=== PATIENT | male | born 1990 | race American Indian/Alaskan Native ===

== ENCOUNTER 2019-05-10 09:20 | Emergency (ER) | payer SELFPAY ==
[2019-05-10 10:01] VITALS: BP 147/84
--- NOTE | 2019-05-10 10:02 | Emergency Department Report ---
Chief Complaint: Sore Throat Stated Complaint: POSS STREP Time Seen by Provider: 05/10/19 09:57 - HPI History of Present Illness: 28 y/o male comes in for a sorethroat for a few days. No fever. - Exam Physical Exam: Axo times 3 NAD HEENT: no droolin able to swallow no SOB MSE screening note: Focused history and physical exam performed. Due to findings the following was ordered: 28 y/o male comes in for a sorethroat for a few days. No fever. Recommend follow up at urgent care or PCP. ED Disposition for MSE Condition: Stable
== END 2019-05-10 11:00 | disposition left against medical advice (07) ==
LOC: ED 09:20
DX: J02.9 Acute pharyngitis, unspecified (principal); Z53.21 Procedure and treatment not carried out due to patient leaving prior to being seen by health care provider

== ENCOUNTER 2021-10-24 10:45 | Emergency (ER) | payer OTHER ==
[2021-10-24] MEDS ORDERED: ZIPRASIDONE MESYLATE 20 MG VIAL IM ONE (11:50)
[2021-10-24] MEDS ORDERED: diphenhydrAMINE 50 MG/ML VIAL IM ONE (11:50)
[2021-10-24] MEDS ORDERED: ZIPRASIDONE MESYLATE 20 MG VIAL IM PRN (11:51)
[2021-10-24] MEDS ORDERED: diphenhydrAMINE 50 MG/ML VIAL IM PRN (11:51)
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
[2021-10-24 12:30] LABS: Basophils % (Auto) 0.2 % (0.0-1.8); Eosinophils % (Auto) 0.5 % (0.0-4.3); Hematocrit 47.8 % (35.5-45.6); Lymphocytes # (Auto) 1.1 K/mm3 (1.2-5.4); Lymphocytes % (Auto) 10.5 % (13.4-35.0); Mean Corpuscular HGB Conc 34 % (32-34); Mean Corpuscular Volume 93 fl (84-94); Monocytes # (Auto) 0.9 K/mm3 (0.0-0.8); Monocytes % (Auto) 8.6 % (0.0-7.3); Platelet Count 224 K/mm3 (140-440); Red Blood Count 5.16 M/mm3 (3.65-5.03); Red Cell Distribution Width 13.9 % (13.2-15.2)
[2021-10-24 12:55] LABS: BUN/Creatinine Ratio 11; Blood Urea Nitrogen 13 mg/dL (9-20); Calcium 10.1 mg/dL (8.4-10.2); Hemolysis Index 3
[2021-10-24 16:34] LABS: Mucus,Urine 3+ /HPF
[2021-10-24 16:41] LABS: Amphetamine Screen,Urine Negative; Benzodiazepines Screen,Urine Negative; Cocaine Screen,Urine Negative; Methadone Screen,Urine Negative; Opiate Screen,Urine Negative
[2021-10-24 16:49] LABS: Color,Urine Yellow (Yellow)
[2021-10-24 16:55] LABS: Cannabinoid Screen,Urine Positive
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
[2021-10-25] MEDS: ESCITALOPRAM 10 MG TAB PO SCH (10:48)
[2021-10-25] MEDS: hydrOXYzine PAMOATE 25 MG CAP PO SCH ×2 (10:48→21:37)
--- NOTE | 2021-10-25 12:04 | Event Note ---
Date: 10/25/21 S: No events reported overnight O: Vital Signs - 8 hr 10/25/21 10/25/21 11:10 11:11 Temperature 99.1 F Pulse Rate 76 Respiratory 18 Rate Blood Pressure 137/76 [Left] O2 Sat by Pulse 100 100 Oximetry A: Major depressive disorder, generalized anxiety disorder P: 1013/awaiting inpatient psych
[2021-10-26 08:48] VITALS: BP 147/82
--- NOTE | 2021-10-26 08:54 | Progress Note ---
Subjective - Reason for Consult Consult date: 10/26/21 Reason for consult: SI - Chief Complaint Chief complaint: The patient was seen today. He is calm, cooperative and polite. He apologizes to me about being upset yesterday. The patient and I had a long talk about his actions and consequences behind what he did. He says "I know it was stupid. It really was but I was never going to hurt myself or anybody. Ma'am, I'm actually a good andi." He says "I really do feel a lot better. I had a lot of time to think. What I did was really stupid to try and do that because somebody is leaving me." The patient says "being in here has scared me and taught me a l esson." He says he works today. The patient says he works at [employer] on the [employer]. He says "I have a pretty good job. I don't want to lose it." He says "that would really make things worse for me." He denies SI/HI. He says "none what so ever. I'm just ready to move past this." He denies hallucinations of any kind. We also discussed the benefit of therapy and him complying with his medical regimen. The patient agrees with plan. REVIEW OF SYSTEMS Constitutional: Negative for weight loss ENT: Negative for stridor Respiratory: Negative for cough or hemoptysis All other systems reviewed and are negative MENTAL STATUS EXAMINATION General Appearance and Behavior: Age appropriate, good hygiene, cooperative, calm, polite Cooperation: cooperative Psychomotor Behavior: Psychomotor normal, Mood: much better Affect and affective range: congruent with stated mood Thought Process: goal directed Thought Content: None Speech: normal rate and volume Suicidal Ideation: Denies Homicidal Ideation: Denies Hallucinations: Denies Delusions: None elicited Impulse Control: Normal Insight and Judgment: Limited Memory: Limited Attention: Attentive Orientation: Aox3 Assessment and Plan (1) Major Depressive Disorder (2) Generalized Anxiety Disorder Treatment Plan d/c 1013 Lexapro 5mg po daily Vistaril 25mg po BID Risks, benefits and alternatives of medications discussed with the patient, questions answered and consent obtained from patient. PSYCHOTHERAPY: Supportive psychotherapy provided MEDICAL: Per primary team DELIRIUM PRECAUTIONS: Please re-orient patient frequently, keep lights on during the day, and minimize benzodiazepines and opiates as these medications could worsen patient's confusion. 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 The patient understands that if SI/HI or any fear of endangerment are to arise he is to seek immediate assistance. The nurse practitioner physician assistant to give the patient all necessary outpatient resources The nurse practitioner physician assistant to further discuss and document safety plan The patient to follow up with outpatient psych in 7 to 14 days upon discharge FOLLOW-UP: Will sign off Thank you for the consult. Please contact with any questions and/or concerns Case discussed with Dr. Haney who agrees with current disposition Mental Status Exam - Vital signs Last Vital Signs Temp 98.4 F 10/26/21 08:46 Pulse 77 10/26/21 08:46 Resp 18 10/26/21 08:46 BP 147/82 10/26/21 08:46 Pulse Ox 98 10/26/21 08:47
[2021-10-26] MEDS: ESCITALOPRAM 10 MG TAB PO SCH (10:07)
[2021-10-26] MEDS: hydrOXYzine PAMOATE 25 MG CAP PO SCH (10:07)
--- NOTE | 2021-10-26 12:48 | Event Note ---
Date: 10/26/21 ER documentation nursing documentation and psychiatric documentation reviewed and appreciated. Patient was deemed medically cleared on his initial ER evaluation. The psychiatric team have recommended discontinuation of 1013. Nursing team reports no acute issues or concerns this morning. Patient ate food, went to the bathroom, and is calm and cooperative. May be discharged with outpatient follow-up as recommended by our psychiatry colleagues. Vital Signs 10/24/21 10/24/21 10/24/21 10:47 15:04 20:58 Temperature 99.6 F 98.6 F Pulse Rate 89 60 Respiratory 18 18 Rate Blood Pressure 149/78 146/83 [Left] O2 Sat by Pulse 98 97 99 Oximetry 10/25/21 10/25/21 10/26/21 11:10 11:11 01:57 Temperature 99.1 F 98.6 F Pulse Rate 76 62 Respiratory 18 16 Rate Blood Pressure 137/76 133/69 [Left] O2 Sat by Pulse 100 100 100 Oximetry 10/26/21 10/26/21 08:46 08:47 Temperature 98.4 F Pulse Rate 77 Respiratory 18 Rate Blood Pressure 147/82 [Left] O2 Sat by Pulse 98 98 Oximetry Lab Results 10/24/21 10/24/21 10/24/21 Range/Units 10:15 10:57 12:00 WBC 10.5 (4.5-11.0) K/mm3 RBC 5.16 H (3.65-5.03) M/mm3 Hgb 16.0 H (11.8-15.2) gm/dl Hct 47.8 H (35.5-45.6) % MCV 93 (84-94) fl MCH 31 (28-32) pg MCHC 34 (32-34) % RDW 13.9 (13.2-15.2) % Plt Count 224 (140-440) K/mm3 Lymph % (Auto) 10.5 L (13.4-35.0) % [place] % (Auto) 8.6 H (0.0-7.3) % Eos % (Auto) 0.5 (0.0-4.3) % Baso % (Auto) 0.2 (0.0-1.8) % Lymph # (Auto) 1.1 L (1.2-5.4) K/mm3 [place] # (Auto) 0.9 H (0.0-0.8) K/mm3 Eos # (Auto) 0.0 (0.0-0.4) K/mm3 Baso # (Auto) 0.0 (0.0-0.1) K/mm3 Seg Neutrophils % 80.2 H (40.0-70.0) % Seg Neutrophils # 8.5 H (1.8-7.7) K/mm3 Sodium (137-145) mmol/L Potassium (3.6-5.0) mmol/L Chloride (98-107) mmol/L Carbon Dioxide (22-30) mmol/L Anion Gap mmol/L BUN (9-20) mg/dL Creatinine (0.8-1.3) mg/dL Estimated GFR ml/min BUN/Creatinine Ratio % Glucose (75-100) mg/dL POC Glucose 91 (70-105) mg/dL Calcium (8.4-10.2) mg/dL Urine Color (Yellow) Urine Turbidity (Clear) Specific [place] (Man) (1.003-1.030) Ur Protein (Man) (Negative) mg/dL Ur Ketones (Man) (Negative) Ur Nitrite (Man) (Negative) Ur Reducing Substances Urine Bilirubin (Man) (Negative) Urine Ictotest Leukocyte Esterase (Man) (Negative) Urine WBC (Auto) (0.0-6.0) /HPF Urine RBC (Auto) (0.0-6.0) /HPF U Epithel Cells (Auto) (0-13.0) /HPF Urine RBC (Manual) (Negative) Urine Mucus /HPF Salicylates (2.8-20.0) mg/dL Urine Opiates Screen Urine Methadone Screen Acetaminophen (10.0-30.0) ug/mL Ur Barbiturates Screen Ur Phencyclidine Scrn Ur Amphetamines Screen U Benzodiazepines Scrn Urine Cocaine Screen U Marijuana (THC) Screen Drugs of Abuse Note Plasma/Serum Alcohol (0-0.07) % SARS-CoV-2 (PCR) Negative (Negative) 10/24/21 10/24/21 10/24/21 Range/Units 12:00 12:00 12:00 WBC (4.5-11.0) K/mm3 RBC (3.65-5.03) M/mm3 Hgb (11.8-15.2) gm/dl Hct (35.5-45.6) % MCV (84-94) fl MCH (28-32) pg MCHC (32-34) % RDW (13.2-15.2) % Plt Count (140-440) K/mm3 Lymph % (Auto) (13.4-35.0) % [place] % (Auto) (0.0-7.3) % Eos % (Auto) (0.0-4.3) % Baso % (Auto) (0.0-1.8) % Lymph # (Auto) (1.2-5.4) K/mm3 [place] # (Auto) (0.0-0.8) K/mm3 Eos # (Auto) (0.0-0.4) K/mm3 Baso # (Auto) (0.0-0.1) K/mm3 Seg Neutrophils % (40.0-70.0) % Seg Neutrophils # (1.8-7.7) K/mm3 Sodium 143 (137-145) mmol/L Potassium 4.2 (3.6-5.0) mmol/L Chloride 103.5 (98-107) mmol/L Carbon Dioxide 26 (22-30) mmol/L Anion Gap 18 mmol/L BUN 13 (9-20) mg/dL Creatinine 1.2 (0.8-1.3) mg/dL Estimated GFR > 60 ml/min BUN/Creatinine Ratio 11 % Glucose 104 H (75-100) mg/dL POC Glucose (70-105) mg/dL Calcium 10.1 (8.4-10.2) mg/dL Urine Color (Yellow) Urine Turbidity (Clear) Specific [place] (Man) (1.003-1.030) Ur Protein (Man) (Negative) mg/dL Ur Ketones (Man) (Negative) Ur Nitrite (Man) (Negative) Ur Reducing Substances Urine Bilirubin (Man) (Negative) Urine Ictotest Leukocyte Esterase (Man) (Negative) Urine WBC (Auto) (0.0-6.0) /HPF Urine RBC (Auto) (0.0-6.0) /HPF U Epithel Cells (Auto) (0-13.0) /HPF Urine RBC (Manual) (Negative) Urine Mucus /HPF Salicylates < 0.3 L (2.8-20.0) mg/dL Urine Opiates Screen Urine Methadone Screen Acetaminophen 5.0 L (10.0-30.0) ug/mL Ur Barbiturates Screen Ur Phencyclidine Scrn Ur Amphetamines Screen U Benzodiazepines Scrn Urine Cocaine Screen U Marijuana (THC) Screen Drugs of Abuse Note Plasma/Serum Alcohol (0-0.07) % SARS-CoV-2 (PCR) (Negative) 10/24/21 10/24/21 10/24/21 Range/Units 12:00 Unknown Unknown WBC (4.5-11.0) K/mm3 RBC (3.65-5.03) M/mm3 Hgb (11.8-15.2) gm/dl Hct (35.5-45.6) % MCV (84-94) fl MCH (28-32) pg MCHC (32-34) % RDW (13.2-15.2) % Plt Count (140-440) K/mm3 Lymph % (Auto) (13.4-35.0) % [place] % (Auto) (0.0-7.3) % Eos % (Auto) (0.0-4.3) % Baso % (Auto) (0.0-1.8) % Lymph # (Auto) (1.2-5.4) K/mm3 [place] # (Auto) (0.0-0.8) K/mm3 Eos # (Auto) (0.0-0.4) K/mm3 Baso # (Auto) (0.0-0.1) K/mm3 Seg Neutrophils % (40.0-70.0) % Seg Neutrophils # (1.8-7.7) K/mm3 Sodium (137-145) mmol/L Potassium (3.6-5.0) mmol/L Chloride (98-107) mmol/L Carbon Dioxide (22-30) mmol/L Anion Gap mmol/L BUN (9-20) mg/dL Creatinine (0.8-1.3) mg/dL Estimated GFR ml/min BUN/Creatinine Ratio % Glucose (75-100) mg/dL POC Glucose (70-105) mg/dL Calcium (8.4-10.2) mg/dL Urine Color Yellow (Yellow) Urine Turbidity Clear (Clear) Specific [place] (Man) 1.025 (1.003-1.030) Ur Protein (Man) 1+ (Negative) mg/dL Ur Ketones (Man) 15 (Negative) Ur Nitrite (Man) Negative (Negative) Ur Reducing Substances Not Reportable Urine Bilirubin (Man) Negative (Negative) Urine Ictotest Not Reportable Leukocyte Esterase (Man) Negative (Negative) Urine WBC (Auto) 1.0 (0.0-6.0) /HPF Urine RBC (Auto) 7.0 (0.0-6.0) /HPF U Epithel Cells (Auto) 1.0 (0-13.0) /HPF Urine RBC (Manual) 4+ (Negative) Urine Mucus 3+ /HPF Salicylates (2.8-20.0) mg/dL Urine Opiates Screen Negative Urine Methadone Screen Negative Acetaminophen (10.0-30.0) ug/mL Ur Barbiturates Screen Negative Ur Phencyclidine Scrn Negative Ur Amphetamines Screen Negative U Benzodiazepines Scrn Negative Urine Cocaine Screen Negative U Marijuana (THC) Screen Positive Drugs of Abuse Note Disclamer Plasma/Serum Alcohol < 0.01 (0-0.07) % SARS-CoV-2 (PCR) (Negative)
== END 2021-10-26 13:14 | disposition home or self-care (01) ==
LOC: ED 10:45
DX: Z04.6 Encounter for general psychiatric examination, requested by authority (principal); R45.851 Suicidal ideations; Z20.822 Contact with and (suspected) exposure to COVID-19; R45.4 Irritability and anger; Z91.018 Allergy to other foods; Z79.899 Other long term (current) drug therapy
CPT/HCPCS: 36415; 80048; 80307; 81001; 82962; 85025; 96372; 99284; J1200; J3486; U0003; 80320; G0480